=== PATIENT | female | born 1935 | race Caucasian/White ===

== ENCOUNTER 2016-11-28 11:44 | Emergency (ER) | payer OTHER, MEDICARE, BC ==
[~2016-11-28] VITALS: Ht 160 cm; Wt 62.0 kg
[2016-11-28 11:46] VITALS: BP 146/90
[2016-11-28] MEDS ORDERED: HYDROcodone/APAP 5/325 TABLET PO ONE (13:30)
[2016-11-28] MEDS ORDERED: HYDROcodone/APAP 5/325 TABLET ONE (13:30)
== END 2016-11-28 14:51 | disposition home or self-care (01) ==
LOC: ED 14:30
DX: S73.102A Unspecified sprain of left hip, initial encounter (principal); S70.02XA Contusion of left hip, initial encounter; I10 Essential (primary) hypertension; W01.0XXA Fall on same level from slipping, tripping and stumbling without subsequent striking against object, initial encounter; Y93.89 Activity, other specified; Y99.8 Other external cause status; Y92.59 Other trade areas as the place of occurrence of the external cause
CPT/HCPCS: 72110